=== PATIENT | male | born 1980 | race African-American/Black ===

== ENCOUNTER 2019-11-20 08:08 | Outpatient (CLI) | payer OTHER, SELFPAY ==
--- NOTE | ~2019-11-20 | US_ITS ---
US art doppler w press LE BI INDICATION: Neuropathy TECHNIQUE: Segmental pressures and plethysmographic and Doppler waveforms of the brachial and lower e xtremity arteries were obtained. COMPARISON: None. FINDINGS: Right and left brachial artery pressures of 105 mm Hg and 94 mm Hg, respectively, are concordant (nor mal difference <= 30 mmHg). The right ankle-brachial index (MADHU) is 1.11 (normal >= 0.9-1.0). The right great toe-brachial index (TBI) is 0.9 (normal >= 0.60). The left MADHU is 1.15. The left TBI is 1. No significant pressure gradients are identified. Waveform patterns are mixed biphasic and triphasic. IMPRESSION: 1. Normal bilateral lower extremity arterial Doppler. Reviewed, dictated and finalized at location A.
== END 2019-11-20 08:09 | disposition home or self-care (01) ==
PROVIDERS: PCP Emergency Medicine; Visit Provider Emergency Medicine
DX: G62.9 Polyneuropathy, unspecified (principal)
CPT/HCPCS: 93923

== ENCOUNTER 2020-12-07 14:46 | Emergency (ER) | payer OTHER, SELFPAY ==
[2020-12-07 14:57] VITALS: BP 101/61; PULSE 96; RESP 16; TEMP 37.2; O2SAT 99
--- NOTE | 2020-12-07 15:19 | ED.GENADULT ---
HPI - General Adult General Chief complaint: Wound/Laceration Stated complaint: left 2nd finger infection Source: patient Mode of arrival: ambulatory Limitations: no limitations History of Present Illness HPI narrative: Patient is a 40-year-old -[place] male who presents to the [facility] via POV for evaluation of the left second finger problem that began 4 days ago. Additionally, he reports the area is swollen, erythematous, and tender. He also reports a yellowish, greenish discharge that stinks . Mild improvement with warm soapy water soaks. Touching area increases tenderness. Related Data Allergies Allergy/AdvReac Type Severity Reaction Status Date / Time No Known Allergies Allergy Verified 08/07/18 20:34 Review of Systems Review of Systems: Denies injury. Pertinent negatives fever, chills, sweats, malaise, poor p.o. intake, change in appetite, headache, LOC, dizziness, streaking, numbness, tingling, loss of sensation, foreign body sensation, deformity, sob, chest pain, and heart palpitations/murmurs. [facility] Past Medical History Medical History (Updated 12/07/20 @ 15:33 by Radha Crowley [facility], ) Diabetes mellitus Hyperlipidemia Comments I have reviewed and agree with the patient's past medical, surgical, social, and family hx as documented by the RN. There is no relevant family history pertinent to the presenting complaint. Exam Narrative: GENERAL: Well-appearing, well-nourished, and in no acute distress. HEAD: Normocephalic, atraumatic. No facial swelling appreciated. EYES: PERRLA and EOMI. No evidence of erythema, swelling, or drainage. ENT: Nares clear, no rhinorrhea or epistaxis.Mucous membranes moist and pink. Uvula is midline without erythema and swelling. No evidence of obstruction, petechial rash, cobblestoning, lesions, ulcers, erythema, swelling, exudates, peritonsillar abscess, tenting, or drooling. Breath odor and voice normal. NECK: Supple. No Lymphadenopathy or nuchal rigidity appreciated. CHEST: Bilateral lung crawford are clear to auscultation. No respiratory distress. No evidence of cough or pleuritic cp upon examination. HEART: Regular rate and rhythm. No murmur, gallop, or rub heard. EXTREMITIES: Normal range of motion. No edema. SKIN: Warm, dry. Small paronychia noted medial aspect of left second digit. No evidence of drainage. To no evidence of streaking, induration, abrasions/lacerations, petechiae, hematoma, contusion, or bleeding. NEURO: No focal deficits. Alert and oriented x3. SPECIAL OBSERVATIONS: Smiling. Laughing. No evidence of discomfort. C/O of of proportion to exam. Eating XXX. Running around. Tolerates food/fluids. Course Course Emergency Course: The patient/guardian displays adequate decision making capability and despite a detailed discussion of alternatives, benefits, risks, and consequences refuses I&D. Vital Signs Vital signs: Vital Signs Temperature 98.9 F 12/07/20 14:57 Pulse Rate 96 12/07/20 14:57 Respiratory Rate 16 12/07/20 14:57 Blood Pressure 101/61 12/07/20 14:57 Pulse Oximetry 99 12/07/20 14:57 Temperature 98.9 F 12/07/20 14:57 Pulse Rate 96 12/07/20 14:57 Respiratory Rate 16 12/07/20 14:57 Blood Pressure 101/61 12/07/20 14:57 Pulse Oximetry 99 12/07/20 14:57 Reviewed Medical Decision Making Differential Diagnosis Differential Diagnosis: Contact/allergic dermatitis, atopic dermatitis, psoriasis, cellulitis, tinea infection, parasite infection, shingles Medical Records Medical records reviewed: Yes I reviewed the external patient's medical records. Vital Signs Vital Signs: Vital Signs Temperature 98.9 F 12/07/20 14:57 Pulse Rate 96 12/07/20 14:57 Respiratory Rate 16 12/07/20 14:57 Blood Pressure 101/61 12/07/20 14:57 Pulse Oximetry 99 12/07/20 14:57 Temperature 98.9 F 12/07/20 14:57 Pulse Rate 96 12/07/20 14:57 Respiratory Rate 16 12/07/20 14:57 Blood Pressure 101/61
== END 2020-12-07 15:36 | disposition home or self-care (01) ==
PROVIDERS: Emergency Provider Nurse Practitioner Family
DX: L03.012 Cellulitis of left finger (principal); E11.9 Type 2 diabetes mellitus without complications; E78.5 Hyperlipidemia, unspecified
CPT/HCPCS: 99213; G0463

== ENCOUNTER 2021-03-26 09:12 | Emergency (ER) | payer OTHER, SELFPAY ==
--- NOTE | 2021-03-26 09:14 | ED.SKABFB ---
HPI - Skin/Abscess/Foreign Bdy General Chief complaint: Skin/Abscess/Foreign Body Stated complaint: Infetion on toe Time Seen by Provider: 03/26/21 09:25 Source: patient and RN notes reviewed Mode of arrival: ambulatory Limitations: no limitations History of Present Illness HPI narrative: 40-year-old male presents to the [facility] with complaints of infection in the right second toe. States approximately 2 weeks ago he fell out of bed and there was an abrasion to the top of his toe and over the last couple of days has become more red, swollen and a wound has opened up and is draining brown/ worrell thick pus. Patient reports that he is a type II diabetic but has not been taking his medication. MD complaint: lesion and discoloration Location: R foot (Second toe) Related Data Home Medications Medication Instructions Recorded Confirmed No Home Medications 03/26/21 03/26/21 Allergies Allergy/AdvReac Type Severity Reaction Status Date / Time No Known Allergies Allergy Verified 03/26/21 09:32 Review of Systems Review of Systems: All systems reviewed & are unremarkable except as noted in HPI and below Constitutional: Constitutional: Reports no additional constitutional complaints, Denies chills and Denies fever(s) Eyes: Eyes: Reports no additional eye complaints ENT: Reports system reviewed and no additional complaints, except as documented Cardiovascular: Cardiovascular: Reports no additional cardiovascular complaints Respiratory: Respiratory: Reports no additional respiratory complaints Gastrointestinal: Gastrointestinal: Reports no additional gastrointestinal complaints Musculoskeletal: Musculoskeletal: Reports no additional musculoskeletal complaints Integumentary/Breasts: Skin/Breast: Reports as per HPI, Reports swelling (Circumferential second toe right foot), Reports change in pigmentation, Reports erythema (Circumferential second toe right foot) and Reports wounds (1 cm open wound draining and pus) Neurologic: Reports system reviewed and no additional complaints, except as documented Psychiatric: Psychiatric: Reports no additional psychiatric complaints Allergic/Immunologic: Allergic/Immunologic: Reports no additional allergic/immunologic complaints PMFSH Past Medical History Medical History Diabetes mellitus Hyperlipidemia Comments At the time of my signature, I reviewed and agree with the nursing past medical, surgical, social, and family history. There is no relevant family history pertinent to the patient complaint. Exam Const: General: healthy appearing, no acute distress and alert Nutritional Appearance: well nourished Orientation/consciousness: patient oriented x3 Limitations: no limitations HENMT: Head: normal to inspection Ears: external ears normal Eyes: Pupils: Equal, round and reactive pupils present Neck: Neck: normal visual inspection, no lymphadenopathy and no meningeal signs Chest: Chest palpation & inspection: normal inspection of the chest Resp: Effort & Inspection: normal respiratory effort and no use of accessory muscles Auscultation: clear to auscultation bilaterally, no crackles, no rales, no rhonchi and no wheezes Cardio: Rate: regular rate Rhythm: regular rhythm Back/Spine/Pelvis: Back: no CVA tenderness Skin: General skin exam: normal color Rashes: no rashes Wounds: wounds noted ulceration right distal 2nd toe size (1cm), drainage brown, purulent and worrell, malodorous and with surrounding erythema (Circumferential second toe, necrotic tissue noted to the distal toe) Neuro: General: patient oriented x3, moves all extremities, no meningeal signs and no focal motor deficits Cranial nerves: Yes Equal, round and reactive pupils present Speech: normal speech Gait exam (Neuro): Normal gait present Extrem: General: normal to inspection and no pedal edema Psych: Appearance: grossly normal and well kempt Mental Status:
[2021-03-26 09:22] VITALS: BP 132/94; PULSE 93; RESP 16; TEMP 35.8; O2SAT 100
[2021-03-26 09:39] LABS: Glucose Point of Care 312 mg/dl (65-105)
== END 2021-03-26 09:40 | disposition short-term general hospital (02) ==
PROVIDERS: Emergency Provider Nurse Practitioner; PCP Emergency Medicine
DX: L03.031 Cellulitis of right toe (principal); E11.9 Type 2 diabetes mellitus without complications; E78.5 Hyperlipidemia, unspecified
CPT/HCPCS: 82948; 99212; G0463

== ENCOUNTER 2021-03-26 09:56 | Emergency (ER) | payer OTHER, SELFPAY ==
--- NOTE | ~2021-03-26 | XR_ITS ---
XR foot RT 2V 03/26/2021 12:57 INDICATION: Second toe infection PROCEDURE: 2 views right foot COMPARISON: No prior studies for comparison. FINDINGS: Fracture, dislocation or subluxation is not identified. 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 The soft tissues appear within normal limits. No foreign bodies are iden tified. IMPRESSION: 1: NO ACUTE BONE OR JOINT ABNORMALITY IDENTIFIED. Reviewed, dictated and finalized at location B. ER DRIVER
[2021-03-26 10:03] VITALS: BP 135/95; PULSE 84; RESP 14; TEMP 36.9; O2SAT 100
--- NOTE | 2021-03-26 11:40 | ED.LOWEXIN ---
HPI - Extremity Injury (Lower) General Chief Complaint: Extremity Injury, Lower Stated Complaint: Toe infection Time Seen by Provider: 03/26/21 11:00 Source: patient Mode of arrival: ambulatory Limitations: no limitations History of Present Illness HPI Narrative: 40-year-old male Type II diabetic Sent from urgent care to have his toe looked at Patient says that he has a callus on top of his right second toe and while he was out of town the callus eroded and started to drain some cloudy looking fluid For a day or 2 he has had some redness extending to the base of the toe He does not continue onto the foot or up the leg at all and there is not a lot of discomfort associated with it and he does not have a fever Patient states that while he was out of town he did not have access to his p.o. diabetes medicines Metformin and glyburide, and he has not taken any of them for about a month, but now that he is back he does have them and will begin to take them again Related Data Home Medications Medication Instructions Recorded Confirmed No Home Medications 03/26/21 03/26/21 Allergies Allergy/AdvReac Type Severity Reaction Status Date / Time No Known Allergies Allergy Verified 03/26/21 09:32 Review of Systems Review of Systems: All systems reviewed & are unremarkable except as noted in HPI and below Constitutional: Constitutional: Denies chills and Denies fever(s) Respiratory: Respiratory: Denies cough and Denies dyspnea Musculoskeletal: Musculoskeletal: Reports no additional musculoskeletal complaints, Reports arthralgias and Reports joint swelling Endocrine: Endocrine: Reports polydipsia PMFSH Past Medical History Medical History Diabetes mellitus Hyperlipidemia Exam Const: General: cooperative, no acute distress and alert Nutritional Appearance: thin Orientation/consciousness: patient oriented x3 (alert) HENMT: Head: normal to inspection, normocephalic and atraumatic Ears: external ears normal General nose exam: no epistaxis Eyes: Conjunctivae: conjunctivae normal EOM: EOMs intact bilaterally Neck: Neck: normal visual inspection, supple and no JVD Resp: Effort & Inspection: normal respiratory effort and not labored Auscultation: other (BS =) Skin: General skin exam: normal color and no rashes or lesions noted Neuro: General: patient oriented x3 (alert) and moves all extremities Speech: normal speech Extrem: General: no pedal edema Other: Right second toe has a small ulceration over to the dorsal IP joint with a small amount of seropurulent discharge, and there is some mild erythema extending effectively to the base of the toe without any proximal lymphangitis Psych: Affect: normal affect Course Course Emergency Course: His diabetes is uncontrolled as would be expected from being off meds for a month and we give him some fluids and insulin and lowered it into an acceptable range, and he will start taking his meds that he has at home correctly Discussed with Dr. Martinez, would like to at least give him a brief trial of oral antibiotics as an outpatient, Dr. Martinez is agreeable, patient is agreeable, and he will be followed up in the office early next week or sooner if things worsen Vital Signs Vital signs: Vital Signs Temperature 36.9 C 03/26/21 10:03 Pulse Rate 84 03/26/21 10:03 Respiratory Rate 14 03/26/21 10:03 Blood Pressure 135/95 H 03/26/21 10:03 Pulse Oximetry 100 03/26/21 10:03 Temperature 36.9 C 03/26/21 10:03 Pulse Rate 84 03/26/21 10:03 Respiratory Rate 14 03/26/21 10:03 Blood Pressure 135/95 H 03/26/21 10:03 Pulse Oximetry 100 03/26/21 10:03 MDM - Extremity Injury (Lower) Medical Records Attestation: I reviewed the patient's medical records. Lab Data Attestation: I reviewed the patient's lab results. Result diagrams: 03/26/21 12:07 03/26/21 12:07 Labs: Lab
[2021-03-26 12:20] LABS: Basophils Absolute Auto 0.1 K/mm3 (0.0-0.1); Basophils Percent Auto 1.2 % (0.2-1.2); Eosinophils Percent Auto 0.6 % (0-4.4); Hematocrit 39.5 % (42.0-52.0); Hemoglobin 12.8 g/dL (14.0-18.0); Immature Granulocyte Absolute 0.01 K/mm3 (0.00-0.031); Immature Granulocyte Percent A 0.2 % (0-0.5); Lymphocytes Absolute Auto 2.38 K/mm3 (0.9-3.2); Lymphocytes Percent Auto 48.8 % (18.3-44.2); Mean Corpuscular HGB Conc 32.4 g/dl (32-36); Mean Corpuscular Hemoglobin 27.2 pg (26-34); Mean Corpuscular Volume 83.9 fl (80-100); Mean Platelet Volume 10.7 fl (7.4-10.4); Monocytes Absolute Auto 0.4 K/mm3 (0.1-0.6); Monocytes Percent Auto 7.4 % (2.6-8.5); Neutrophils Percent Auto 41.8 % (45.5-73.1); Platelet Count Result 271 k/mm3 (150-375); Red Blood Count 4.71 M/mm3 (4.6-6.20); Red Cell Distribution Width 13.8 % (11.5-14.5); White Blood Count 4.9 K/mm3 (4.5-10.0)
[2021-03-26 12:35] LABS: Anion Gap 5 mmol/L (8-16); Blood Urea Nitrogen 7 mg/dL (9-20); CRP 0.6 mg/dL (<1.0); Calcium 9.1 mg/dL (8.4-10.2); Carbon Dioxide 32 mmol/L (22-30); Chloride 98 mmol/L (98-107); Estimated CRCL calculation 173 ml/min; Estimated Glomerular Filt Rate > 60; Glucose 350 mg/dL (65-110); Potassium 4.5 mmol/L (3.4-5.0); Sodium 135 mmol/L (137-145)
[2021-03-26] MEDS: INSULIN HUMAN REGULAR (*BKC) 100 UNITS/ML 8 UNITS IV PUSH (13:09)
[2021-03-26] MEDS: AMPICILLIN SULB 3 GM/NS 100 ML 3 GM/100 ML VIAL IVPB (13:10)
[2021-03-26 13:50] LABS: Glucose Point of Care 246 mg/dl (65-105)
[2021-03-26 14:02] VITALS: BP 130/87; PULSE 83; RESP 16; O2SAT 100
== END 2021-03-26 14:08 | disposition home or self-care (01) ==
PROVIDERS: Emergency Provider Emergency Medicine; PCP Emergency Medicine
DX: L03.031 Cellulitis of right toe (principal); E11.8 Type 2 diabetes mellitus with unspecified complications; E78.5 Hyperlipidemia, unspecified
CPT/HCPCS: 36415; 73620; 80048; 82948; 85025; 86140; 96365; 96375; 99284; J0295; J1815

== ENCOUNTER 2021-07-14 15:31 | Emergency (ER) | payer OTHER, SELFPAY ==
--- NOTE | 2021-07-14 15:34 | ED.URI ---
HPI - URI/Sore Throat General Chief Complaint: Upper Respiratory Infection Stated Complaint: uri Time Seen by Provider: 07/14/21 15:39 Source: patient, RN notes reviewed and old records reviewed Mode of arrival: ambulatory Limitations: no limitations History of Present Illness HPI Narrative: 41-year-old male presents to the [facility] with 3 to 4 weeks of upper respiratory cough, congestion, not feeling good 10 days ago was the worst. But just cannot get over it. Is a known diabetic is not well controlled. Reports taking 3 at home COVID test and all were negative MD elicited complaint: cough, sore throat, rhinorrhea and nasal congestion Related Data Home Medications Medication Instructions Recorded Confirmed metformin 850 mg tablet 850 mg PO DAILY 04/06/21 07/14/21 multivitamin 1 tablet PO DAILY 04/06/21 07/14/21 gabapentin 300 mg PO DAILY 07/14/21 07/14/21 Allergies Allergy/AdvReac Type Severity Reaction Status Date / Time No Known Allergies Allergy Verified 07/14/21 15:34 Review of Systems Review of Systems: All systems reviewed & are unremarkable except as noted in HPI and below Constitutional: Constitutional: Reports as per HPI, Denies chills, Reports fatigue, Denies fever(s) and Denies headache(s) Eyes: Eyes: Reports no additional eye complaints ENT: Reports as per HPI, Denies vertigo, Denies dizziness, Denies headache(s), Reports nasal congestion and Denies sore throat Cardiovascular: Cardiovascular: Reports no additional cardiovascular complaints, Denies chest pain, Denies syncope, Denies rapid heart rate and Denies dyspnea Respiratory: Respiratory: Reports no additional respiratory complaints, Denies cough, Denies dyspnea and Denies wheezing Gastrointestinal: Gastrointestinal: Reports no additional gastrointestinal complaints, Denies abdominal pain, Denies diarrhea, Denies nausea and Denies vomiting Musculoskeletal: Musculoskeletal: Reports no additional musculoskeletal complaints and Denies numbness Integumentary/Breasts: Skin/Breast: Reports system reviewed and no additional complaints, except as docu Neurologic: Reports system reviewed and no additional complaints, except as documented, Denies vertigo, Denies dizziness, Denies syncope, Denies headache(s), Denies focal weakness and Denies numbness Psychiatric: Psychiatric: Reports no additional psychiatric complaints Allergic/Immunologic: Allergic/Immunologic: Reports no additional allergic/immunologic complaints and Denies wheezing PMFSH Past Medical History Medical History Diabetes mellitus Hyperlipidemia Surgical History Surgical History No history of previous surgery Family History Family History Mother Diabetes mellitus Social History Social History Smoking status: Never smoker Alcohol intake: never Substance use: never Comments At the time of my signature, I reviewed and agree with the nursing past medical, surgical, social, and family history. There is no relevant family history pertinent to the patient complaint. Exam Const: General: cooperative, healthy appearing, no acute distress, well developed and alert Nutritional Appearance: well nourished Orientation/consciousness: patient oriented x3 Limitations: no limitations HENMT: Head: normal to inspection Ears: external ears normal, TM's normal bilaterally and EAC's normal General nose exam: Normal external nose present and Normal nasal mucous membranes and turbinates present Face and sinus: normal facial exam Mouth: Yes moist mucous membranes Throat: posterior oropharynx normal, tonsils normal, uvula midline and no uvular edema Eyes: Conjunctivae: conjunctivae normal Pupils: Equal, round and reactive pupils present Neck: Neck: normal visual inspection
[2021-07-14 15:40] VITALS: BP 120/77; PULSE 101; RESP 16; TEMP 36.5; O2SAT 99
== END 2021-07-14 16:00 | disposition home or self-care (01) ==
PROVIDERS: Emergency Provider Nurse Practitioner; PCP Emergency Medicine
DX: J40 Bronchitis, not specified as acute or chronic (principal); E11.9 Type 2 diabetes mellitus without complications; E78.5 Hyperlipidemia, unspecified
CPT/HCPCS: 99213; G0463

== ENCOUNTER 2021-08-11 13:43 | Emergency (ER) | payer OTHER, SELFPAY ==
[2021-08-11 13:52] VITALS: BP 115/76; PULSE 95; RESP 16; TEMP 36.5; O2SAT 100
--- NOTE | 2021-08-11 14:30 | ED.MALEGU ---
HPI - Male Genitourinary General Chief complaint: Urogenital-Male Stated complaint: sti exposure Time Seen by Provider: 08/11/21 14:16 History of Present Illness HPI Narrative: Pt had sex with person who he found out may have had an STD. 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 Pt has no symptoms, no dysuria, frequency or discharge, no lesions. Pt would like to be treated to be safe. Related Data Home Medications Medication Instructions Recorded Confirmed metformin 850 mg tablet 850 mg PO DAILY 04/06/21 07/14/21 multivitamin 1 tablet PO DAILY 04/06/21 07/14/21 gabapentin 300 mg capsule 300 mg PO DAILY 07/14/21 07/14/21 Allergies Allergy/AdvReac Type Severity Reaction Status Date / Time No Known Allergies Allergy Verified 08/11/21 14:03 Review of Systems Review of Systems: All systems reviewed & are unremarkable except as noted in HPI and below PMFSH Past Medical History Medical History Diabetes mellitus Hyperlipidemia Surgical History Surgical History No history of previous surgery Family History Family History Mother Diabetes mellitus Social History Social History Smoking status: Never smoker Alcohol intake: never Substance use: never Exam Const: General: healthy appearing Nutritional Appearance: well nourished Limitations: no limitations Neck: Neck: normal visual inspection Resp: Effort & Inspection: normal respiratory effort Auscultation: clear to auscultation bilaterally Cardio: Rate: regular rate Rhythm: regular rhythm GI: GI Palp: Yes Soft to palpation Auscultation: normal bowel sounds : General: Yes bladder normal to palpation Skin: General skin exam: normal color Rashes: no rashes Neuro: General: patient oriented x3, moves all extremities, no meningeal signs and no focal motor deficits Speech: normal speech Extrem: General: normal to inspection and no clubbing, cyanosis or edema Psych: Mental Status: mental status grossly normal Affect: normal affect Attitude: cooperative Course Vital Signs Vital signs: Vital Signs Temperature 97.7 F 08/11/21 13:52 Pulse Rate 95 08/11/21 13:52 Respiratory Rate 16 08/11/21 13:52 Blood Pressure 115/76 08/11/21 13:52 Pulse Oximetry 100 08/11/21 13:52 Oxygen Delivery Room Air 08/11/21 13:52 Temperature 97.7 F 08/11/21 13:52 Pulse Rate 69 08/11/21 15:26 Respiratory Rate 16 08/11/21 15:26 Blood Pressure 135/96 H 08/11/21 15:26 Pulse Oximetry 98 08/11/21 15:26 Oxygen Delivery Room Air 08/11/21 13:52 MDM - Male Genitourinary Lab Data Labs: Lab Results 08/11/21 08/11/21 Range/Units 14:56 14:56 Urine Color Yellow (Yellow) Urine Appearance Clear (Clear) Urine pH 5.5 (5.0-9.0) Ur Specific [place] 1.025 (1.001-1.035) Urine Protein Negative (Negative) mg/dL Urine Glucose (UA) 3+ H (Negative) mg/dL Urine Ketones Negative (Negative) mg/dL Ur Blood (Man) Trace-intact (Negative) Urine Nitrate Negative (Negative) Urine Bilirubin Negative (Negative) Urine Urobilinogen 0.2 (<2.0) mg/dL Leukocyte Esterase Rfl Negative (Negative) RHODA/UL Urine RBC 0-2 (0-2) /hpf Urine WBC 0-3 /hpf Hyaline Casts 1-2 (None) /lpf Urine Mucus Rare /lpf C.trachomatis RNA (TMA) Pending N.gonorrhoeae RNA (TMA) Pending Urine Characteristics Clear Discharge Plan Discharge Clinical Impression: STI (sexually transmitted infection) Patient Disposition: Home, Self-Care Condition: Stable Instructions: Antibiotic Form, Chlamydia (ED), Gonorrhea (ED) Additional Instructions: follow up with PCP or Health Dept for further testing if desired Prescri
[2021-08-11] MEDS: AZITHROMYCIN 250 MG TABLET 1000 MG PO (14:51)
[2021-08-11] MEDS: cefTRIAXone 250 MG VIAL IM (14:51)
--- NOTE | 2021-08-11 14:59 | PC.NURSE ---
Lidocaine used for Rocephin reconstitution.
[2021-08-11 15:12] LABS: Appearance Urine Clear (Clear); Bilirubin Urine Negative (Negative); Color Urine Yellow (Yellow); Glucose Urine UA 3+ mg/dL (Negative); Ketones Urine Negative (Negative); Leukocyte Esterase Ur Negative LEU/UL (Negative); Nitrate Urine Negative (Negative); Protein Urine Negative (Negative); Specific Grav Ur 1.025 (1.001-1.035); Urobilinogen Urine 0.2 mg/dL (<2.0); pH Urine 5.5 (5.0-9.0)
[2021-08-11 15:23] LABS: Mucus Urine Rare /lpf; RBC Urine 0-2 /hpf (0-2); WBC Urine 0-3 /hpf
[2021-08-11 15:24] LABS: Add Urine Microscopic? YES; Blood Urine Trace-Intact (Negative)
[2021-08-11 15:26] VITALS: BP 135/96; PULSE 69; RESP 16; O2SAT 98
== END 2021-08-11 15:30 | disposition home or self-care (01) ==
PROVIDERS: Emergency Provider Emergency Medicine; PCP Emergency Medicine
DX: A64 Unspecified sexually transmitted disease (principal); E11.9 Type 2 diabetes mellitus without complications; E78.5 Hyperlipidemia, unspecified; Z79.84 Long term (current) use of oral hypoglycemic drugs
CPT/HCPCS: 81001; 87491; 87591; 96372; 99283; A9270; J0696

== ENCOUNTER → 2021-09-07 13:18 | Outpatient (CLI) | payer OTHER, SELFPAY ==
--- NOTE | ~2021-09-07 | XR_ITS ---
XR knee LT min 4V DATE: 09/07/2021 13:54 INDICATION: Left knee pain TECHNIQUE: 4 views including crosstable lateral COMPARISON: None FINDINGS: No fracture or dislocation or joint effusion. Joint spaces are preserved. No radiopaque int ra-articular loose body or, calcinosis. No periosteal reaction or bone destruction. IMPRESSION: No significant abnormality Reviewed, dictated and finalized at location A. IMPRESSION: No significant abnormality
--- NOTE | ~2021-09-07 | XR_ITS ---
EXAMINATION: XR chest 2V 09/07/2021 13:55 INDICATION: Left-sided chest pain PROCEDURE: 2 view chest COMPARISON: 04/12/2017 FINDINGS: The lungs are clear. The cardiomediastinal silhouette is within normal limits. There are no pleural effusions. There is no pneumothorax suspected. IMPRESSION: 1: NO ACUTE CARDIOPULMONARY DISEASE. Reviewed, dictated and finalized at location A.
--- NOTE | ~2021-09-07 | XR_ITS ---
XR femur LT min 2V DATE: 09/07/2021 13:55 INDICATION: Left upper leg pain TECHNIQUE: AP and lateral views COMPARISON: None FINDINGS: Normal alignment at the left hip and knee joints. No fracture or dislocation, periosteal re action or bone destruction. IMPRESSION: Negative Reviewed, dictated and finalized at location A. IMPRESSION: Negative
== END ==
PROVIDERS: PCP Emergency Medicine; Visit Provider Emergency Medicine
DX: R22.1 Localized swelling, mass and lump, neck (principal)
CPT/HCPCS: 71046; 73552; 73564

== ENCOUNTER 2021-09-08 08:09 | Outpatient (CLI) | payer OTHER, SELFPAY ==
--- NOTE | ~2021-09-08 | US_ITS ---
EXAMINATION: US soft tissue head and neck DATE: 09/08/2021 08:32 INDICATION: Left neck lump. TECHNIQUE: Multiple grayscale and Doppler ultrasound images of the neck were obtained. COMPARISON: Neck CT 05/13/2006 FINDINGS: There is a normal-sized lymph node in left neck in the patient's area of concern. IMPRESSION: 1. Normal-sized lymph node in left neck in the patient's area of concern. Reviewed, dictated and finalized at location A.
== END 2021-09-08 08:10 | disposition home or self-care (01) ==
PROVIDERS: PCP Emergency Medicine; Visit Provider Emergency Medicine
DX: R22.1 Localized swelling, mass and lump, neck (principal)
CPT/HCPCS: 76536

== ENCOUNTER 2021-11-18 09:00 | Outpatient (RCR) | payer SELFPAY | END 2022-02-01 11:19 | disposition home or self-care (01) | LOC: ANHDMC 09:00 | PROVIDERS: PCP Emergency Medicine; Visit Provider Nurse Practitioner | DX: E11.65 Type 2 diabetes mellitus with hyperglycemia (principal); Z71.89 Other specified counseling | CPT/HCPCS: G0108 ==

== ENCOUNTER 2022-02-11 15:32 | Outpatient (CLI) | payer OTHER, SELFPAY ==
--- NOTE | ~2022-02-11 | US_ITS ---
Renal-Bladder ultrasound Clinical History: Chronic kidney disease Technique: Real-time sonographic imaging of the kidneys and urinary bladder was performed. Findings: The right kidney measures 11.4 cm in length and the left kidney measures 12.1 cm. There is no hydronephrosis or renal calculus identified. Renal cortical echogenicity is within normal limits. No renal mass lesion is identified. The urinary bladder is partially distended at the time of this exam. No intraluminal echoes are ident ified. No abnormal wall thickening is seen. Impression: Unremarkable ultrasound of the kidneys and urinary bladder. Reviewed, dictated and finalized at location [] UNTING LECTURER Impression: Unremarkable ultrasound of the kidneys and urinary bladder.
== END 2022-02-11 15:33 | disposition home or self-care (01) ==
PROVIDERS: PCP Emergency Medicine; Visit Provider Internal Medicine Nephrology
DX: N18.9 Chronic kidney disease, unspecified (principal)
CPT/HCPCS: 76775

== ENCOUNTER 2022-10-26 13:58 | Outpatient (CLI) | payer OTHER, SELFPAY ==
[2022-10-26 14:12] LABS: Basophils Absolute Auto 0.1 K/mm3 (0.0-0.1); Eosinophils Percent Auto 0.6 % (0-4.4); Hematocrit 32.2 % (42.0-52.0); Hemoglobin 10.3 g/dL (14.0-18.0); Lymphocytes Absolute Auto 2.42 K/mm3 (0.9-3.2); Lymphocytes Percent Auto 47.6 % (18.3-44.2); Mean Corpuscular Hemoglobin 27.8 pg (26-34); Mean Corpuscular Volume 86.8 fl (80-100); Mean Platelet Volume 9.1 fl (7.4-10.4); Monocytes Absolute Auto 0.4 K/mm3 (0.1-0.6); Monocytes Percent Auto 6.9 % (2.6-8.5); Neutrophils Absolute Auto 2.2 K/mm3 (1.3-6.7); Neutrophils Percent Auto 43.9 % (45.5-73.1); Platelet Count Result 267 k/mm3 (150-375); Red Blood Count 3.71 M/mm3 (4.6-6.20); Red Cell Distribution Width 14.9 % (11.5-14.5); White Blood Count 5.1 K/mm3 (4.5-10.0)
[2022-10-26 14:17] LABS: Blood Urea Nitrogen 14 mg/dL (8-26); Carbon Dioxide 27 mmol/L (22-30); Chloride 105 mmol/L (98-109); Estimated Glomerular Filt Rate > 60; Glucose 162 mg/dL (70-105); Ionized Calcium (POC) 1.18 mmol/L (1.11-1.31); Potassium 4.1 mmol/L (3.5-4.9); Sodium 142 mmol/L (138-146)
[2022-10-26 17:24] LABS: Alanine Aminotransferase 35 U/L (6-50); Alkaline Phosphatase 57 U/L (38-126); Anion Gap 4 mmol/L (8-16); Aspartate Amino Transferase 37 U/L (17-59); Bilirubin,Total 0.3 mg/dL (0.2-1.3); Blood Urea Nitrogen 15 mg/dL (9-20); Calcium 8.2 mg/dL (8.4-10.2); Carbon Dioxide 29 mmol/L (22-30); Chloride 107 mmol/L (98-107); Estimated Glomerular Filt Rate > 60; Glucose 157 mg/dL (65-110); Potassium 4.2 mmol/L (3.4-5.0); Sodium 140 mmol/L (137-145)
== END 2022-10-26 13:59 | disposition home or self-care (01) ==
LOC: ANHLAB 14:00
PROVIDERS: PCP Emergency Medicine; Visit Provider Internal Medicine Hematology & Oncology
DX: D64.9 Anemia, unspecified (principal)
CPT/HCPCS: 36415; 80047; 80053; 85025

== ENCOUNTER 2023-04-13 14:02 | Emergency (ER) | payer OTHER, SELFPAY ==
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
[2023-04-13 14:17] VITALS: BP 127/77; PULSE 78; RESP 16; TEMP 36.4; O2SAT 99
--- NOTE | 2023-04-13 15:03 | ED.GENADULT ---
HPI - General Adult General Chief complaint: Unspecified Stated complaint: med refill diabetes,diarrhea x2 weeks, Time Seen by Provider: 04/13/23 14:30 Source: patient Mode of arrival: ambulatory Limitations: no limitations History of Present Illness HPI narrative: 42 yo M presents with multiple complaints. Needs his trulicity refilled. States 1.5 out of stock and wants .75 dose. has had diarrhea for 1 wk. thinks he drank bad water in [place]. No ABD pain. No blood in stool. Pain to R wrist for 1 month. Hurt it while closing a window. Last complaint is pussy sores to head. Recently used new hair place. Tender to touch. all systems reviewed and negative except as noted above. Related Data Home Medications Medication Instructions Recorded Confirmed multivitamin 1 tablet PO DAILY 04/06/21 07/14/21 bictegravir 50 mg-emtricitabine 1 tablet PO DAILY 04/13/23 04/13/23 200 mg-tenofovir alafenam 25 mg tablet (Biktarvy) dulaglutide 1.5 mg/0.5 mL 1.5 mg subcut WEEKLY 04/13/23 04/13/23 subcutaneous pen injector (Trulicity) glimepiride 2 mg tablet 2 mg PO DAILY 04/13/23 04/13/23 Allergies Allergy/AdvReac Type Severity Reaction Status Date / Time No Known Allergies Allergy Verified 04/13/23 14:19 Review of Systems Review of Systems: CONSTITUTIONAL: Denies fever, chills, or sweats. EYES: Denies visual changes, redness, or discharge. ENT: Denies rhinorrhea, congestion, sore throat, or otalgia. CARDIOVASCULAR: Denies chest pain, palpitations, or edema. RESPIRATORY: Denies cough or dyspnea. GASTROINTESTINAL: Denies abdominal pain, nausea, vomiting . Reports diarrhea. GENITOURINARY: Denies dysuria or hematuria. SKIN: Denies rash or itching. reports pussy sores to scalp MUSCULOSKELETAL: Denies back pain, joint pain, or myalgia. reports right wrist pain. NEUROLOGIC: Denies headache, numbness, or weakness. PSYCHIATRIC: Denies anxiety or depression. All other systems reviewed are negative, except as documented in HPI. [facility] Past Medical History Medical History Diabetes mellitus Hyperlipidemia Surgical History Surgical History No history of previous surgery Family History Family History Mother Diabetes mellitus Social History Social History Smoking status: Never smoker Alcohol intake: never Substance use: never Comments At time of signature, agree with nursing past medical, surgical, social and family history. There is no relevant family history pertinent to the presenting complaint. Exam Narrative: GENERAL: This is a well-nourished, well-developed patient, in no apparent distress. HEAD: normocephalic, atraumatic. EYES: PERRL. Sclera clear/white. Vision is grossly intact. EARS: External ears normal NOSE: External nose normal NECK: Neck supple, non-tender without lymphadenopathy, masses or thyromegaly. CARDIOVASCULAR: Regular rate and rhythm without murmurs, gallops, or rubs. RESPIRATORY: Clear to auscultation. Breath sounds equal bilaterally. No wheezes, rales, or rhonchi. GASTROINTESTINAL: Abdomen soft, non-tender, nondistended. Bowel sounds are active. No hepato-splenomegaly, or palpable masses. No guarding. SKIN: warm, Dry, intact with no suspicious rash, good texture and turgor. multiple erythematous pustules to scalp NEURO: awake, alert, and oriented to person, place and time. There were no obvious focal neurologic abnormalities. EXTREMITIES: tender to radial aspect R wrist with mild swelling. no deformity. ROM intact. Course Course Level of Care: Express Care Visit Vital Signs Vital signs: Vital Signs Temperature 36.4 C L 04/13/23 14:17 Pulse Rate 78 04/13/23 14:17 Respiratory Rate 16 04/13/23 14:17 Blood Pressure 127/77 04/13/23 14:17 Puls
== END 2023-04-13 15:36 | disposition home or self-care (01) ==
PROVIDERS: Emergency Provider Nurse Practitioner Family; PCP Emergency Medicine
DX: E11.9 Type 2 diabetes mellitus without complications (principal); L73.9 Follicular disorder, unspecified; M19.031 Primary osteoarthritis, right wrist
CPT/HCPCS: 73110; 99213; G0463

== ENCOUNTER 2023-06-22 13:20 | Outpatient (CLI) | payer OTHER, SELFPAY ==
[2023-06-22 13:33] LABS: Basophils Absolute Auto 0.1 K/mm3 (0.0-0.1); Basophils Percent Auto 1.1 % (0.2-1.2); Eosinophils Absolute Auto 0.1 K/mm3 (0-0.3); Eosinophils Percent Auto 1.7 % (0-4.4); Hematocrit 32.2 % (42.0-52.0); Hemoglobin 10.1 g/dL (14.0-18.0); Immature Granulocyte Absolute 0.01 K/mm3 (0.00-0.031); Immature Granulocyte Percent A 0.2 % (0-0.5); Lymphocytes Absolute Auto 2.83 K/mm3 (0.9-3.2); Lymphocytes Percent Auto 42.8 % (18.3-44.2); Mean Corpuscular HGB Conc 31.4 g/dl (32-36); Mean Corpuscular Hemoglobin 27.7 pg (26-34); Mean Corpuscular Volume 88.5 fl (80-100); Mean Platelet Volume 10.2 fl (7.4-10.4); Monocytes Absolute Auto 0.6 K/mm3 (0.1-0.6); Monocytes Percent Auto 8.9 % (2.6-8.5); Neutrophils Percent Auto 45.3 % (45.5-73.1); Platelet Count Result 209 k/mm3 (150-375); Red Blood Count 3.64 M/mm3 (4.6-6.20); Red Cell Distribution Width 14.5 % (11.5-14.5); White Blood Count 6.6 K/mm3 (4.5-10.0)
== END 2023-06-22 13:21 | disposition home or self-care (01) ==
LOC: ANHLAB 13:23
PROVIDERS: Nurse Practitioner Family; PCP Emergency Medicine; Visit Provider Internal Medicine Hematology & Oncology
DX: D64.9 Anemia, unspecified (principal)
CPT/HCPCS: 36415; 85025

== ENCOUNTER 2023-06-23 01:22 | Emergency (ER) | payer OTHER, SELFPAY ==
--- NOTE | ~2023-06-23 | XR_ITS ---
Right wrist Technique: PA, oblique, lateral, and ulnar deviation views were obtained. Clinical History: Pain Findings: No acute fracture or dislocation is seen. Osseous alignment is anatomic. Joint spaces are p reserved. Soft tissues are unremarkable. Impression: Unremarkable right wrist radiographs. Reviewed, dictated and finalized at location . Impression: Unremarkable right wrist radiographs.
[2023-06-23 01:41] VITALS: BP 171/90; PULSE 82; RESP 15; TEMP 36.7; O2SAT 100
[2023-06-23 02:07] LABS: Basophils Absolute Auto 0.1 K/mm3 (0.0-0.1); Basophils Percent Auto 1.1 % (0.2-1.2); Eosinophils Absolute Auto 0.1 K/mm3 (0-0.3); Eosinophils Percent Auto 2.3 % (0-4.4); Hemoglobin 9.9 g/dL (14.0-18.0); Immature Granulocyte Absolute 0.01 K/mm3 (0.00-0.031); Immature Granulocyte Percent A 0.2 % (0-0.5); Lymphocytes Absolute Auto 2.54 K/mm3 (0.9-3.2); Mean Corpuscular HGB Conc 31.9 g/dl (32-36); Mean Corpuscular Volume 87.6 fl (80-100); Mean Platelet Volume 10.5 fl (7.4-10.4); Monocytes Absolute Auto 0.5 K/mm3 (0.1-0.6); Monocytes Percent Auto 9.1 % (2.6-8.5); Neutrophils Absolute Auto 2.1 K/mm3 (1.3-6.7); Neutrophils Percent Auto 39.3 % (45.5-73.1); Platelet Count Result 214 k/mm3 (150-375); Red Blood Count 3.54 M/mm3 (4.6-6.20); Red Cell Distribution Width 14.7 % (11.5-14.5); White Blood Count 5.3 K/mm3 (4.5-10.0)
[2023-06-23 02:22] LABS: Alanine Aminotransferase 48 U/L (6-50); Albumin Level 3.6 g/dL (3.5-5.1); Alkaline Phosphatase 69 U/L (38-126); Anion Gap 3 mmol/L (4-12); Aspartate Amino Transferase 38 U/L (17-59); Bilirubin,Total 0.4 mg/dL (0.2-1.3); Blood Urea Nitrogen 17 mg/dL (9-20); Calcium 8.1 mg/dL (8.4-10.2); Carbon Dioxide 21 mmol/L (22-30); Chloride 114 mmol/L (98-107); Estimated CRCL calculation 144 ml/min; Estimated Glomerular Filt Rate > 60; Glucose 213 mg/dL (65-110); Potassium 3.8 mmol/L (3.4-5.0); Sodium 138 mmol/L (137-145)
[2023-06-23 03:25] VITALS: BP 142/89; PULSE 79; PULSE 83; RESP 16; O2SAT 100
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
[2023-06-23 04:24] VITALS: BP 157/99; PULSE 78; RESP 14; O2SAT 100
== END 2023-06-23 04:25 | disposition home or self-care (01) ==
PROVIDERS: Emergency Provider Emergency Medicine; PCP Emergency Medicine
DX: K52.9 Noninfective gastroenteritis and colitis, unspecified (principal); S69.91XA Unspecified injury of right wrist, hand and finger(s), initial encounter; E11.9 Type 2 diabetes mellitus without complications; E78.5 Hyperlipidemia, unspecified; V49.9XXA Car occupant (driver) (passenger) injured in unspecified traffic accident, initial encounter; Z79.85 Long-term (current) use of injectable non-insulin antidiabetic drugs; Z79.84 Long term (current) use of oral hypoglycemic drugs
CPT/HCPCS: 36415; 73110; 80053; 85025; 99283

== ENCOUNTER 2023-08-05 15:51 | Emergency (ER) | payer OTHER, SELFPAY ==
[2023-08-05 16:00] VITALS: BP 144/92; PULSE 72; RESP 16; TEMP 36.6; O2SAT 100
--- NOTE | 2023-08-05 16:02 | ED.SKABFB ---
HPI - Skin/Abscess/Foreign Bdy General Chief complaint: Skin/Abscess/Foreign Body Stated complaint: Elbow Iritation/Sore Time Seen by Provider: 08/05/23 16:07 Source: patient and RN notes reviewed Mode of arrival: ambulatory Limitations: dementia History of Present Illness HPI narrative: 43-year-old male presents with concern for redness, soreness to his left elbow. Reports a few days ago he noticed a small pimples that area. Reports later the faith had purulent drainage. Since then the area has become red, tender, warm, swollen in the swelling is spreading his arm. He denies fever, body aches, chills, sweats. Reports he had more purulent drainage come out of the area today. MD complaint: other (Redness) Related Data Home Medications Medication Instructions Recorded Confirmed multivitamin 1 tablet PO DAILY 04/06/21 08/05/23 bictegravir 50 mg-emtricitabine 1 tablet PO DAILY 04/13/23 08/05/23 200 mg-tenofovir alafenam 25 mg tablet (Biktarvy) dulaglutide 1.5 mg/0.5 mL 1.5 mg subcut WEEKLY 04/13/23 08/05/23 subcutaneous pen injector (Trulicity) glimepiride 2 mg tablet 2 mg PO DAILY 04/13/23 08/05/23 Allergies Allergy/AdvReac Type Severity Reaction Status Date / Time No Known Allergies Allergy Verified 08/05/23 15:52 Review of Systems Review of Systems: CONSTITUTIONAL: Denies malaise, chills, sweats, or fever. EYES: Denies redness, or discharge. ENT: Denies rhinorrhea, congestion, swollen lips, swollen tongue CARDIOVASCULAR: Denies chest pain, palpitations, or edema. RESPIRATORY: Denies cough or dyspnea. GASTROINTESTINAL: Denies abdominal pain, nausea, vomiting SKIN: Reports redness, swelling, tenderness, purulent drainage in the left elbow. Denies vesicles, bullae, numbness, pain beyond proportion MUSCULOSKELETAL: Denies joint pain or myalgia. NEUROLOGIC: Denies headache. All systems reviewed & are unremarkable except as noted in HPI and below PMFSH Past Medical History Medical History Diabetes mellitus Hyperlipidemia Surgical History Surgical History No history of previous surgery Family History Family History Mother Diabetes mellitus Social History Social History Smoking status: Never smoker Alcohol intake: never Substance use: never Comments At time of signature, agree with nursing past medical, surgical, social and family history. There is no relevant family history pertinent to the presenting complaint Exam Narrative: GENERAL: Well-appearing, well-nourished, and in no acute distress. HEAD: Normocephalic, atraumatic. EYES: PERRLA, conjunctivae clear ENT: Mucous membranes moist. NECK: Supple. No lymphadenopathy CHEST: Clear to auscultation. No respiratory distress. HEART: Regular rate and rhythm. SKIN: Warm, dry. Erythema, induration, tenderness, warmth with sharp margins noted to the left elbow and extending up the left arm with a central scab, no fluctuation noted. No vesicles, bullae, necrosis, ecchymosis, crepitus noted. NEURO: Alert and oriented x3. PSYCH: Normal mood and affect Back/Spine/Pelvis: Back/spine/pelvis image: 1. Erythema, induration, warmth Course Course Emergency Course: Patient is aware of diagnosis, understands and agrees to treatment plan. Anticipatory guidance given. Patient agrees to follow-up as directed and is aware of reasons to seek care at the emergency department. Portions of this record may have been created with voice recognition software Level of Care: Express Care Visit Vital Signs Vital signs: Vital Signs Temperature 97.9 F 08/05/23 16:00 Pulse Rate 72 08/05/23 16:00 Respiratory Rate 16 08/05/23 16:00 Blood Pressure 144/92 H 08/05/23 16:00 Pulse Oximetry 100 08/05/23 16:00 Ox
== END 2023-08-05 16:20 | disposition home or self-care (01) ==
PROVIDERS: Emergency Provider Nurse Practitioner; PCP Emergency Medicine
DX: L03.114 Cellulitis of left upper limb (principal); E11.9 Type 2 diabetes mellitus without complications; E78.5 Hyperlipidemia, unspecified
CPT/HCPCS: 99213; G0463